=== PATIENT | male | born 1965 | race Caucasian/White ===

== ENCOUNTER 2022-11-13 19:54 | Inpatient (IN) | payer BC ==
[2022-11-13] MEDS ORDERED: NOREPINEPHRINE BITARTRATE 4 MG/4 ML ML IV ONE (20:01)
[2022-11-13] MEDS ORDERED: NOREPINEPHRINE BITARTRATE/D5W 8 MG/250 ML BAG IVPB ONE (20:02)
[2022-11-13] MEDS ORDERED: MIDAZOLAM HCL 5 MG/1 ML Single Dose Vial ONE (20:04)
[2022-11-13] MEDS ORDERED: MIDAZOLAM IN 0.9 % SOD.CHLORID 1 MG/1 ML PLAST..BAG ONE (20:04)
[2022-11-13] MEDS ORDERED: RAPID SEQUENCE INTUBATION KIT NR ONE (20:04)
[2022-11-13] MEDS ORDERED: ROCURONIUM BROMIDE 50 MG/5 ML SYRINGE ONE (20:06)
[2022-11-13 20:34] LABS: VENOUS O2 SATURATION 93.2 % (70-80)
[2022-11-13 20:35] LABS: BASO % 0.6 % (0-2.0); EOS % 0.5 % (0-4.5); HEMOGLOBIN 12.9 GM/dL (11.7-16.9); LYMPH % 5.1 % (8-40); MCH 29.1 pg (25.7-33.7); MCHC 32.3 g/dl (32.0-35.9); MEAN PLT VOLUME 10.4 fl (7.5-11.1); MONO % 7.9 % (3.8-10.2); NEUT % 85.9 % (42.8-82.8); PLATELET COUNT 269 10^3/uL (134-434); RBC 4.44 M/mm3 (4.00-5.60); RDW 14.1 % (11.9-15.9); WHITE BLOOD COUNT 26.2 K/mm3 (4.0-10.0)
[2022-11-13] MEDS ORDERED: NALOXONE HCL 0.4 MG/ML VIAL ONE (20:35)
[2022-11-13] MEDS ORDERED: PIPERACILLIN/TAZOB 3.375 GM 3.375 GM in DEXTROSE 5%-WATER - 50 ML IVPB ONE (20:38)
[2022-11-13 20:42] LABS: VENOUS PH 6.961 (7.310-7.410)
[2022-11-13 20:43] LABS: VENOUS PCO2 83.5 mmHg (38-52)
[2022-11-13] MEDS ORDERED: PROPOFOL 1,000,000 MCG/100 ML VIAL ONE (20:45)
[2022-11-13 20:46] LABS: INR 1.2 (0.83-1.09); PROTHROMBIN TIME (PATIENT) 13.9 SEC (9.7-13.0)
[2022-11-13 20:49] LABS: ACTIVATED PTT 33.3 SECONDS (25.2-36.5)
[2022-11-13 20:54] LABS: CHLORIDE 102 mmol/L (98-107); SODIUM 140 mmol/L (136-145)
[2022-11-13 20:56] LABS: CALCIUM 8.7 mg/dL (8.5-10.1)
[2022-11-13 20:57] LABS: ALBUMIN 3.7 g/dl (3.4-5.0); ANION GAP 17 MMOL/L (8-16); BLOOD UREA NITROGEN 21.7 mg/dL (7-18); CO2 22 mmol/L (21-32); GLUCOSE,RANDOM 352 mg/dL (74-106); MAGNESIUM 2.9 mg/dL (1.8-2.4)
[2022-11-13 21:00] LABS: CREATININE 2.6 mg/dL (0.55-1.3); SGOT/AST 205 U/L (15-37); SGPT/ALT 191 U/L (13-61)
[2022-11-13 21:02] LABS: BILIRUBIN,TOTAL 0.2 mg/dL (0.2-1)
[2022-11-13 21:03] LABS: ALK PHOS 129 U/L (45-117)
[2022-11-13] MEDS ORDERED: ALBUTEROL SO4 0.083% IH SOL 2.5 MG/3 ML VIAL.NEB. NEB ONE ×2 (21:05→21:11)
[2022-11-13] MEDS ORDERED: DEXAMETHASONE SOD PHOSPHATE 10 MG/1 ML VIAL IVPUSH ONE (21:05)
[2022-11-13] MEDS ORDERED: DEXAMETHASONE SOD PHOSPHATE 10 MG/1 ML VIAL ONE (21:10)
[2022-11-13] MEDS ORDERED: MAGNESIUM SULF 50% (8.12 MEQ/2 ML-1 GM VIAL) IVPB ONE (21:10)
[2022-11-13] MEDS ORDERED: ALBUTEROL SO4 2.5/IPRATROPIUM 0.5 INH SOL 3 ML VIAL.NEB. NEB ONE (21:10)
[2022-11-13] MEDS ORDERED: NALOXONE HCL 0.4 MG/ML VIAL IVPUSH ONE (21:12)
[2022-11-13] MEDS ORDERED: MIDAZOLAM HCL 5 MG/1 ML Single Dose Vial IVPUSH ONE (21:12)
[2022-11-13] MEDS ORDERED: FENTANYL NS IVPB 500 MCG/100 ML BAG IVPB SCH ×2 (21:15→23:45)
[2022-11-13] MEDS: PROPOFOL 1,000,000 MCG/100 ML VIAL IVPB SCH (21:18)
[2022-11-13] MEDS: NOREPINEPHRINE 0.9 % NACL 8 MG/250 ML BAG IVPB SCH (21:19)
[2022-11-13 21:20] LABS: ANISOCYTOSIS 1+
[2022-11-13] MEDS ORDERED: PIPERACILLIN/TAZOB 3.375 GM 3.375 GM/50 ML BAG IVPB ONE (21:23)
[2022-11-13] MEDS ORDERED: SODIUM CHLORIDE 0.9% 500 ML INFUS.BAG IV ONE (21:24)
[2022-11-13 21:42] LABS: LACTIC ACID 7.9 mmol/L (0.4-2.0); PHOSPHOROUS 9.6 mg/dL (2.5-4.9)
[2022-11-13] MEDS ORDERED: fentaNYL CITRATE 250 MCG/5 ML VIAL ONE (22:47)
[2022-11-13] MEDS ORDERED: FENTANYL CITRATE/PF 50 MCG/ML VIAL IVPUSH ONE (23:03)
[2022-11-14] MEDS: MUPIROCIN 2% TOPICAL OINTMENT FOR DECOLONIZATION NS SCH ×2 (00:06→21:06)
[2022-11-14 00:38] LABS: ALBUMIN 3.6 g/dl (3.4-5.0); BLOOD UREA NITROGEN 21.2 mg/dL (7-18); CALCIUM 8.1 mg/dL (8.5-10.1); MAGNESIUM 2.9 mg/dL (1.8-2.4)
[2022-11-14 00:43] LABS: BILIRUBIN,TOTAL 0.3 mg/dL (0.2-1); TOT PROT 7.4 g/dl (6.4-8.2)
[2022-11-14] MEDS: ALBUTEROL SO4 0.083% IH SOL 2.5 MG/3 ML VIAL.NEB. NEB SCH ×7 (00:46→23:23)
[2022-11-14 00:47] LABS: N-TERMINAL BNP 57.5 pg/ml (5-125)
[2022-11-14 01:00] LABS: LACTIC ACID 7.8 mmol/L (0.4-2.0)
[2022-11-14 01:30] LABS: METHADONE, UR NEGATIVE (NEGATIVE)
[2022-11-14 01:31] LABS: PHENCYCLIDINE,URINE NEGATIVE (NEGATIVE); URINE BARBITURATES NEGATIVE (NEGATIVE)
[2022-11-14] MEDS ORDERED: LACTATED RINGERS SOLUTION 1000 ML INFUS.BAG IV ONE (02:15)
[2022-11-14 02:18] LABS: ARTERIAL BLOOD GAS BASE EXCESS -10.4 mmol/L (-2-2); ARTERIAL BLOOD GAS PO2 106.4 mmHg (80-100)
[2022-11-14 02:26] LABS: COCAINE, UR POSITIVE (NEGATIVE); OPIATES, URI POSITIVE (NEGATIVE); URINE AMPHETAMINES NEGATIVE (NEGATIVE); URINE BENZODIAZEPINES POSITIVE (NEGATIVE)
[2022-11-14] MEDS ORDERED: DEXMEDETOMIDINE PREMIX 400 MCG/100 ML BAG IVPB SCH (06:30)
[2022-11-14] MEDS ORDERED: DEXMEDETOMIDINE PREMIX 400 MCG/100 ML BAG IVPB ONE (06:37)
[2022-11-14 07:09] LABS: HEMATOCRIT 38.4 % (35.4-49); HEMOGLOBIN 12.6 GM/dL (11.7-16.9); MCHC 32.9 g/dl (32.0-35.9); MEAN CELL VOLUME 88.4 fl (80-96); MEAN PLT VOLUME 10.5 fl (7.5-11.1); PLATELET COUNT 217 10^3/uL (134-434); RBC 4.35 M/mm3 (4.00-5.60); RDW 13.7 % (11.9-15.9); WHITE BLOOD COUNT 18.2 K/mm3 (4.0-10.0)
[2022-11-14 07:32] LABS: CHLORIDE 105 mmol/L (98-107); SODIUM 137 mmol/L (136-145)
[2022-11-14 07:38] LABS: ANION GAP 10 MMOL/L (8-16); BLOOD UREA NITROGEN 24.7 mg/dL (7-18); CO2 23 mmol/L (21-32); GLUCOSE,RANDOM 195 mg/dL (74-106)
[2022-11-14 07:41] LABS: CREATININE 2.1 mg/dL (0.55-1.3)
[2022-11-14 07:44] LABS: LACTIC ACID 7.2 mmol/L (0.4-2.0)
[2022-11-14 08:25] LABS: ARTERIAL BLD GAS O2 SATURATION 97.5 % (95-98); ARTERIAL BLOOD GAS BASE EXCESS -4.4 mmol/L (-2-2); ARTERIAL BLOOD GAS PO2 114.7 mmHg (80-100); ARTERIAL BLOOD GAS pH 7.249 (7.350-7.450)
[2022-11-14 08:29] LABS: ALLENS TEST POSITIVE
[2022-11-14 08:31] LABS: VENT RATE 22
[2022-11-14] MEDS: PIPERACILLIN/TAZOB 4.5 GM 4.5 GM in DEXTROSE 5%-WATER 100 ML IVPB SCH ×4 (09:45→23:00)
[2022-11-14] MEDS ORDERED: SODIUM CHLORIDE 0.9% 1000 ML INFUS.BAG IV ONE (10:22)
[2022-11-14 10:31] LABS: ANISOCYTOSIS 1+; MACROCYTOSIS 0
[2022-11-14] MEDS: ENOXAPARIN NA (PORCINE) 40 MG/0.4 ML DISP.SYRIN SQ SCH (11:45)
[2022-11-14] MEDS: PANTOPRAZOLE SODIUM 40 MG VIAL IVPUSH SCH (11:45)
[2022-11-14 12:24] VITALS: BMI 37.0
[2022-11-14 12:46] LABS: ARTERIAL BLD GAS O2 SATURATION 96.2 % (95-98); ARTERIAL BLOOD GAS BASE EXCESS -5.9 mmol/L (-2-2); ARTERIAL BLOOD GAS PO2 90.3 mmHg (80-100); ARTERIAL BLOOD GAS pH 7.304 (7.350-7.450)
[2022-11-14 12:49] LABS: VENT RATE 22
[2022-11-14 13:39] LABS: EPI CELLS 31 /uL (0-25.1); HYALINE CASTS 20 /uL (0-3.1); URINE APPEARANCE TURBID; URINE BACTERIA 5 /uL (0-1359); URINE BILIRUBIN NEGATIVE (NEGATIVE); URINE COLOR YELLOW; URINE GLUCOSE (UA) NEGATIVE (NEGATIVE); URINE KETONE TRACE (NEGATIVE); URINE LEUK ESTERASE NEGATIVE (NEGATIVE); URINE NITRITE NEGATIVE (NEGATIVE); URINE PROTEIN 1+ (NEGATIVE); URINE RBC 193 /uL (0-23.9); URINE UROBILINOGEN 0.2 mg/dL (0.2-1.0); URINE WBC 42 /uL (0-25.8)
[2022-11-14 13:57] LABS: BLOOD UREA NITROGEN 29.2 mg/dL (7-18); CALCIUM 7.3 mg/dL (8.5-10.1); MAGNESIUM 2.2 mg/dL (1.8-2.4)
[2022-11-14 14:01] LABS: PHOSPHOROUS 3.4 mg/dL (2.5-4.9)
[2022-11-14 14:11] LABS: LACTIC ACID 4.7 mmol/L (0.4-2.0)
[2022-11-14] MEDS: SODIUM CHLORIDE 1,000 ML IV SCH (15:01)
[2022-11-14] MEDS: CHLORHEXIDINE GLUCONATE 4% CLEANSER FOR DECOLONIZATION TP SCH (21:06)
[2022-11-15] MEDS: PIPERACILLIN/TAZOB 4.5 GM 4.5 GM in DEXTROSE 5%-WATER 100 ML IVPB SCH (02:31)
[2022-11-15] MEDS: ALBUTEROL SO4 0.083% IH SOL 2.5 MG/3 ML VIAL.NEB. NEB SCH ×5 (03:35→20:36)
[2022-11-15 07:11] LABS: BASO % 0.3 % (0-2.0); EOS % 0.1 % (0-4.5); HEMATOCRIT 32.8 % (35.4-49); LYMPH % 10.1 % (8-40); MCH 29.4 pg (25.7-33.7); MCHC 33.4 g/dl (32.0-35.9); MEAN CELL VOLUME 87.9 fl (80-96); MEAN PLT VOLUME 10.5 fl (7.5-11.1); MONO % 8.5 % (3.8-10.2); PLATELET COUNT 134 10^3/uL (134-434); RBC 3.74 M/mm3 (4.00-5.60); RDW 13.8 % (11.9-15.9); WHITE BLOOD COUNT 11.5 K/mm3 (4.0-10.0)
[2022-11-15 07:21] LABS: BLOOD UREA NITROGEN 24.6 mg/dL (7-18); CALCIUM 8.2 mg/dL (8.5-10.1); MAGNESIUM 2.3 mg/dL (1.8-2.4)
[2022-11-15 07:24] LABS: CREATININE 1.2 mg/dL (0.55-1.3); PHOSPHOROUS 2.7 mg/dL (2.5-4.9)
[2022-11-15 07:28] LABS: BILIRUBIN,TOTAL 0.6 mg/dL (0.2-1); TOT PROT 6.1 g/dl (6.4-8.2)
[2022-11-15] MEDS ORDERED: PIPERACILLIN/TAZOB 2.25 GM 2.25 GM in DEXTROSE 5%-WATER - 50 ML IVPB SCH (09:00)
[2022-11-15] MEDS: ENOXAPARIN NA (PORCINE) 40 MG/0.4 ML DISP.SYRIN SQ SCH (09:39)
[2022-11-15] MEDS: PANTOPRAZOLE SODIUM 40 MG VIAL IVPUSH SCH (09:39)
[2022-11-15] MEDS: MUPIROCIN 2% TOPICAL OINTMENT FOR DECOLONIZATION NS SCH ×2 (09:40→21:22)
[2022-11-15] MEDS: NOREPINEPHRINE 0.9 % NACL 8 MG/250 ML BAG IVPB SCH (10:38)
[2022-11-15] MEDS: PROPOFOL 1,000,000 MCG/100 ML VIAL IVPB SCH (10:38)
[2022-11-15] MEDS: SODIUM CHLORIDE 1,000 ML IV SCH ×2 (18:00→21:22)
[2022-11-15] MEDS: PIPERACILLIN/TAZOB 3.375 GM 3.375 GM in DEXTROSE 5%-WATER - 50 ML IVPB SCH (18:00)
[2022-11-15] MEDS: CHLORHEXIDINE GLUCONATE 4% CLEANSER FOR DECOLONIZATION TP SCH (21:22)
[2022-11-16] MEDS: ALBUTEROL SO4 0.083% IH SOL 2.5 MG/3 ML VIAL.NEB. NEB SCH ×4 (00:05→12:25)
[2022-11-16] MEDS: PIPERACILLIN/TAZOB 3.375 GM 3.375 GM in DEXTROSE 5%-WATER - 50 ML IVPB SCH ×3 (01:03→17:43)
[2022-11-16 07:01] LABS: HEMATOCRIT 33.3 % (35.4-49); HEMOGLOBIN 11.1 GM/dL (11.7-16.9); MCH 29.4 pg (25.7-33.7); MCHC 33.4 g/dl (32.0-35.9); MEAN CELL VOLUME 87.9 fl (80-96); MEAN PLT VOLUME 10.9 fl (7.5-11.1); PLATELET COUNT 141 10^3/uL (134-434); RBC 3.79 M/mm3 (4.00-5.60); RDW 13.9 % (11.9-15.9); WHITE BLOOD COUNT 9.3 K/mm3 (4.0-10.0)
[2022-11-16 07:19] LABS: CALCIUM 8.1 mg/dL (8.5-10.1); MAGNESIUM 2.2 mg/dL (1.8-2.4)
[2022-11-16 07:20] LABS: ALBUMIN 2.8 g/dl (3.4-5.0)
[2022-11-16 07:22] LABS: CREATININE 0.8 mg/dL (0.55-1.3); PHOSPHOROUS 2.6 mg/dL (2.5-4.9)
[2022-11-16 07:24] LABS: BILIRUBIN,TOTAL 0.8 mg/dL (0.2-1); TOT PROT 6.2 g/dl (6.4-8.2)
[2022-11-16] MEDS ORDERED: PIPERACILLIN/TAZOBACTAM 3.375 GM VIAL IVPB ONE (07:39)
[2022-11-16] MEDS: MUPIROCIN 2% TOPICAL OINTMENT FOR DECOLONIZATION NS SCH ×2 (09:11→21:25)
[2022-11-16] MEDS: ENOXAPARIN NA (PORCINE) 40 MG/0.4 ML DISP.SYRIN SQ SCH (09:11)
[2022-11-16] MEDS: PANTOPRAZOLE SODIUM 40 MG VIAL IVPUSH SCH (09:11)
[2022-11-16] MEDS ORDERED: ACETYLCYSTEINE 20% 200MG/ML 4 ML VIAL *FOR ORAL / INH USE ONLY NEB ONE (12:00)
[2022-11-16] MEDS: SODIUM CHLORIDE 1,000 ML IV SCH (17:43)
[2022-11-16] MEDS: CHLORHEXIDINE GLUCONATE 4% CLEANSER FOR DECOLONIZATION TP SCH (21:25)
[2022-11-17] MEDS: PIPERACILLIN/TAZOB 3.375 GM 3.375 GM in DEXTROSE 5%-WATER - 50 ML IVPB SCH ×2 (01:34→09:01)
[2022-11-17 06:47] LABS: BASO % 0.8 % (0-2.0); EOS % 2.5 % (0-4.5); HEMATOCRIT 32.9 % (35.4-49); LYMPH % 10.7 % (8-40); MCH 29.4 pg (25.7-33.7); MCHC 33.6 g/dl (32.0-35.9); MEAN CELL VOLUME 87.5 fl (80-96); MEAN PLT VOLUME 10.4 fl (7.5-11.1); MONO % 10.4 % (3.8-10.2); NEUT % 75.6 % (42.8-82.8); PLATELET COUNT 175 10^3/uL (134-434); RBC 3.75 M/mm3 (4.00-5.60); RDW 13.7 % (11.9-15.9); WHITE BLOOD COUNT 8.4 K/mm3 (4.0-10.0)
[2022-11-17] MEDS: SODIUM CHLORIDE 1,000 ML IV SCH (07:48)
[2022-11-17 07:51] LABS: ALBUMIN 2.8 g/dl (3.4-5.0); BILIRUBIN,TOTAL 0.8 mg/dL (0.2-1); BLOOD UREA NITROGEN 13.3 mg/dL (7-18); CALCIUM 8.6 mg/dL (8.5-10.1); CREATININE 0.7 mg/dL (0.55-1.3); MAGNESIUM 2.4 mg/dL (1.8-2.4); PHOSPHOROUS 3.7 mg/dL (2.5-4.9); TOT PROT 6.7 g/dl (6.4-8.2)
[2022-11-17] MEDS: ENOXAPARIN NA (PORCINE) 40 MG/0.4 ML DISP.SYRIN SQ SCH (09:01)
[2022-11-17] MEDS: PANTOPRAZOLE SODIUM 40 MG VIAL IVPUSH SCH (09:01)
[2022-11-17] MEDS: MUPIROCIN 2% TOPICAL OINTMENT FOR DECOLONIZATION NS SCH ×2 (09:03→21:02)
[2022-11-17 12:56] LABS: HIV INTERPRETATION NEGATIVE (NEGATIVE)
[2022-11-17] MEDS: ALBUTEROL SO4 2.5/IPRATROPIUM 0.5 INH SOL 3 ML VIAL.NEB. NEB PRN ×2 (13:30→20:36)
[2022-11-17] MEDS: AMOX TR/POT CLAV 875MG/125MG TABLETS (FP) PO SCH (18:53)
[2022-11-17] MEDS: CHLORHEXIDINE GLUCONATE 4% CLEANSER FOR DECOLONIZATION TP SCH (21:03)
[2022-11-18 07:20] LABS: HEMATOCRIT 36.5 % (35.4-49); HEMOGLOBIN 12.5 GM/dL (11.7-16.9); MCH 29.9 pg (25.7-33.7); MCHC 34.1 g/dl (32.0-35.9); MEAN CELL VOLUME 87.8 fl (80-96); MEAN PLT VOLUME 10.8 fl (7.5-11.1); PLATELET COUNT 195 10^3/uL (134-434); RBC 4.16 M/mm3 (4.00-5.60); RDW 13.4 % (11.9-15.9); WHITE BLOOD COUNT 7.9 K/mm3 (4.0-10.0)
[2022-11-18 07:55] LABS: CALCIUM 9.1 mg/dL (8.5-10.1)
[2022-11-18 07:57] LABS: MAGNESIUM 2.4 mg/dL (1.8-2.4)
[2022-11-18 07:59] LABS: BILIRUBIN,TOTAL 0.6 mg/dL (0.2-1); CREATININE 0.7 mg/dL (0.55-1.3); PHOSPHOROUS 4.1 mg/dL (2.5-4.9); TOT PROT 7.2 g/dl (6.4-8.2)
[2022-11-18] MEDS: ALBUTEROL SO4 2.5/IPRATROPIUM 0.5 INH SOL 3 ML VIAL.NEB. NEB PRN ×3 (08:05→15:28)
[2022-11-18 08:54] LABS: ANISOCYTOSIS 0; HELMET CELLS 0; HOWELL-JOLLY BODIES 0; MACROCYTOSIS 0; OVALOCYTE 0; ROULEAU 0; SICKELED CELLS 0; TARGET CELLS 0; TEAR DROP CELLS 0; TOXIC GRANULATION 0
[2022-11-18] MEDS: ENOXAPARIN NA (PORCINE) 40 MG/0.4 ML DISP.SYRIN SQ SCH (10:37)
[2022-11-18] MEDS: PANTOPRAZOLE SODIUM 40 MG VIAL IVPUSH SCH (10:37)
[2022-11-18] MEDS: MUPIROCIN 2% TOPICAL OINTMENT FOR DECOLONIZATION NS SCH (10:38)
[2022-11-18] MEDS: AMOX TR/POT CLAV 875MG/125MG TABLETS (FP) PO SCH (10:38)
[2022-11-18 14:15] VITALS: PULSE 95
[2022-11-18 14:41] VITALS: BP 126/74; RESP 22; TEMP 98.2
== END 2022-11-18 18:00 | disposition home or self-care (01) | DRG 208 ==
LOC: JER 19:54 → JERBED 20:47 → JICU 22:19
PROVIDERS: ADMIT Internal Medicine; ATTEND Internal Medicine
PROC: 5A1935Z Respiratory Ventilation, Less than 24 Consecutive Hours (ICD-10-PCS; principal; 2022-11-13)
DX: J96.02 Acute respiratory failure with hypercapnia (principal); I46.9 Cardiac arrest, cause unspecified; J69.0 Pneumonitis due to inhalation of food and vomit; E87.29 Other acidosis; J45.901 Unspecified asthma with (acute) exacerbation; M62.82 Rhabdomyolysis; N17.9 Acute kidney failure, unspecified; I24.8 Other forms of acute ischemic heart disease; F14.10 Cocaine abuse, uncomplicated; F12.10 Cannabis abuse, uncomplicated; J96.01 Acute respiratory failure with hypoxia; I45.10 Unspecified right bundle-branch block; F13.10 Sedative, hypnotic or anxiolytic abuse, uncomplicated
CPT/HCPCS: 0241U-QW; 36415; 36600; 70450-TC; 71045-TC-FY; 71250-TC; 71275-TC; 74176-TC; 80048; 80053; 80307; 81003; 82272; 82550; 82553; 82570; 82803; 82962; 83605; 83735; 83880; 84100; 84300; 84439; 84443; 84484; 85025; 85027; 85610; 85730; 86850; 86900; 86901; 87040; 87070; 87086; 87205; 87389; 87899; 93005; 93010; 93306-TC; 94002; 94010; 94640; 94761; 97116-GP; 97161-GP; 99285-25; J1100; Q9967